=== PATIENT | male | born 1970 | race Caucasian/White ===

== ENCOUNTER 2020-09-22 05:35 | Outpatient (RCR) | payer BC, OTHER ==
[~2020-09-22] VITALS: Ht 180 cm; Wt 103.6 kg
[~2020-09-22 05:35] MED LIST: CALC-250 PO; CELE-63 PO; CETI10TA17 PO; CYCL10TA9 PO; DULO60CA59 PO; LISI10TA2 PO; LRT10T PO; MELO-195 PO; ONDA8TAB13 PO; OXYC-471 PO; OXYC15TA73 PO; OXYC20TA63 PO; PREG150C PO; TRAM50TA2 PO
== END 2020-09-22 11:36 | disposition home or self-care (01) ==
LOC: PREOP 05:35
PROVIDERS: ATTEND Surgery
DX: Z01.812 Encounter for preprocedural laboratory examination (principal); K62.5 Hemorrhage of anus and rectum; Z20.828 Contact with and (suspected) exposure to other viral communicable diseases
CPT/HCPCS: 87635

== ENCOUNTER 2020-09-26 08:01 | Day surgery (SDC) | payer BC, OTHER ==
[2020-09-26] VITALS (9 sets, daily range): BP systolic 100–119; BP diastolic 62–75
[~2020-09-26] VITALS: Ht 180 cm; Wt 103.6 kg
[2020-09-26] MEDS ORDERED: LACTATED RINGERS 1,000 ML IV ONE (08:17)
[2020-09-26] MEDS ORDERED: LACTATED RINGERS 1,000 ML IV STA (08:21)
[2020-09-26] MEDS ORDERED: MIDAZOLAM 5 MG/5 ML (VERSED) VIAL IV ONE (08:30)
[2020-09-26] MEDS ORDERED: fentaNYL INJECTION 100 MCG/2 ML AMP IVP ONE (08:30)
--- NOTE | 2020-09-26 09:47 | Progress Note-Pre Operative ---
Pre-Operative Progress Note H&P Reviewed The H&P was reviewed, patient examined and no changes noted. Time Seen by Provider: 09:44 Date H&P Reviewed: Sep 26, 2020 Time H&P Reviewed: 09:43 Pre-Operative Diagnosis: rectal bleed FRANCESCO RICHARD DO Sep 26, 2020 09:47
[2020-09-26] MEDS ORDERED: PROPOFOL INJECTION 50 ML IV ONE (09:52)
[2020-09-26] MEDS ORDERED: MIDAZOLAM 2 MG/2 ML (VERSED) VIAL ONE ×2 (09:52→10:14)
--- NOTE | 2020-09-26 10:32 | Progress Note-Post Operative ---
Post-Operative Progess Note Surgeon (s)/Gear Design Engineer (s) Surgeon FRANCESCO RICHARD DO Gear Design Engineer: EVANGELINA Rodrigez Pre-Operative Diagnosis rectal bleed Post-Operative Diagnosis int hemorrhoids anal fissure Procedure & Operative Findings Date of Procedure 09/26/20 Procedure Performed/Findings colon Anesthesia Type IV sedation by ELECTRONIC DATA INTERCHANGE SPECIALIST Estimated Blood Loss Estimated blood loss (mL): none Specimens/Packing Specimens Removed none FRANCESCO RICHARD DO Sep 26, 2020 10:32
--- NOTE | 2020-09-26 10:33 | Endoscopy Discharge Instruct ---
Endo Procedure/Findings Findings 1.: Internal Hemorrhoids 2.: Other Findings (anal fissure) Discharge Instructions - Activity: You might feel a little sleepy until tomorrow. This is due to the medicine you received to relax you. Until tomorrow, you should: NOT drive a car, operate machinery or power tools. NOT drink any alcoholic beverages. NOT make any important decisions or sign importortant papers. Do not return to work until tomorrow, unless otherwise instructed. Resume previous activities tomorrow. Diet: Start by taking liquids. If you tolerate liquids, advance to solid food. 1.: Colonscopy in 10 years Notify Physician - If you experience excessive bleeding, unusual abdominal pain, fever, or chest pain, contact your doctor immediately. FRANCESCO RICHARD DO Sep 26, 2020 10:33
--- NOTE | 2020-09-26 11:34 | Anesthesia-General Post-Op ---
MAC Patient Condition Mental Status/LOC: Same as Preop Cardiovascular: Satisfactory Nausea/Vomiting: Absent Respiratory: Satisfactory Pain: Controlled Complications: Absent Post Op Complications Complications None Follow Up Care/Instructions Patient Instructions None needed. Anesthesiology Discharge Order Discharge Order Patient is doing well, no complaints, stable vital signs, no apparent adverse anesthesia problems. No complications reported per nursing. TANYA LONG CRNA Sep 26, 2020 11:34
--- NOTE | 2020-09-27 04:06 | OPERATIVE REPORT ---
DATE OF SERVICE: 09/26/2020 PREOPERATIVE DIAGNOSIS: Rectal bleed. POSTOPERATIVE DIAGNOSIS: Internal hemorrhoids and anal fissure. PROCEDURE: Colonoscopy. SURGEON: Zeeshan Rich DO AIR DUCT MECHANIC: HARLAN Rodrigez. ANESTHESIA: IV sedation by the DATA WAREHOUSE ARCHITECT. SPECIMENS: None. BLOOD LOSS: None. FLUIDS: Per anesthesia. POSTOPERATIVE CONDITION: Stable. INDICATION FOR PROCEDURE: The patient is a 50-year-old male who had some rectal bleeding, needed a workup. FINDINGS: The patient had some very minimal internal hemorrhoids and then he appeared to have a healing anal fissure. PROCEDURE NOTE: After informed consent was obtained, the patient was brought to the endoscopy suite, placed in bed in left lateral decubitus position. He was administered IV sedation by the DATA WAREHOUSE ARCHITECT who then monitored his vitals the entire time, heart rate, blood pressure and pulse ox. I then inserted the scope, pushed all the way about 140 cm, able to get to the cecum, took a picture of appendiceal orifice, noted the ileocecal valve and then slowly withdrew the scope insufflating to look circumferentially at the campbell looking at the cecum, up the ascending colon to the hepatic flexure, then down the transverse colon, splenic flexure, into the descending colon and then down into the sigmoid colon, finally into the rectum, retroflexed in rectal vault, saw some minimal internal hemorrhoids and then removed the scope and upon removing the scope, then everted the anus and saw what looked like a healing anal fissure. The patient tolerated the procedure, has recovered in endoscopy suite. Job ID: [id number] DocumentID: [id number] Dictated Date: 09/26/2020 17:33:08 Assistant Food Service Manager Date: 09/27/2020 04:05:56 Dictated By: ZEESHAN RICH DO
== END 2020-09-26 11:10 | disposition home or self-care (01) ==
LOC: ENDO 08:01
PROVIDERS: ATTEND Surgery
DX: K62.5 Hemorrhage of anus and rectum (principal); K64.8 Other hemorrhoids; K60.2 Anal fissure, unspecified; I10 Essential (primary) hypertension; E66.9 Obesity, unspecified; Z68.32 Body mass index [BMI] 32.0-32.9, adult; F17.210 Nicotine dependence, cigarettes, uncomplicated; Z79.899 Other long term (current) drug therapy; Z88.5 Allergy status to narcotic agent; Z80.51 Family history of malignant neoplasm of kidney

== ENCOUNTER → 2022-07-19 | Outpatient (CLI) | payer OTHER ==
[~2022-07-19] MED LIST changes: +LISI10TA25 PO; -OXYC-471 PO; +OXYC1TAB11 PO; +RT-ALBUTEROL SULF 2.5 MG/3 ML PRE-MIX VIAL INH ONE
== END ==
LOC: RT 10:26
PROVIDERS: ATTEND Family Medicine
DX: R06.00 Dyspnea, unspecified (principal)
CPT/HCPCS: 94060; 94726; 94729

== ENCOUNTER → 2022-07-23 | Outpatient (CLI) | payer OTHER ==
[~2022-07-23] MED LIST changes: -RT-ALBUTEROL SULF 2.5 MG/3 ML PRE-MIX VIAL INH ONE
--- NOTE | 2022-07-23 11:16 | Diagnostic Imaging Report ---
PROCEDURE: US Hepatic (Liver). TECHNIQUE: Multiple real-time grayscale images were obtained over the right upper quadrant in various projections. INDICATION: Elevated liver enzyme. FINDINGS: Echogenic appearance of liver consistent with fatty change. No focal lesions are seen. Long axis is 17 cm. The bile ducts are not dilated. The common duct is obscured by bowel gas. Gallbladder appears normal with no gallstones or wall thickening. All midline structures are obscured by bowel gas including the pancreas and aorta. Portal vein shows normal hepatopetal flow. The right kidney measures 11.5 x 5 x 6 cm. There is a 3 cm cyst in the midportion. There is no ascites. Negative Ny sign. IMPRESSION: Limited exam due to considerable bowel gas. 1. Hepatomegaly with diffuse fatty change of the liver. 2. No gallstones or bile duct dilatation noted. Dictated by: Dictated on workstation # [id number]
== END ==
LOC: RAD 09:45
PROVIDERS: ATTEND Family Medicine
DX: K76.0 Fatty (change of) liver, not elsewhere classified (principal); R94.5 Abnormal results of liver function studies
CPT/HCPCS: 76705